=== PATIENT | female | born 1995 | race Caucasian/White ===

== ENCOUNTER 2025-04-29 21:42 | Emergency (ER) | payer OTHER ==
[~2025-04-29] VITALS: Ht 165.1 cm; Wt 95.9 kg
[2025-04-29] MEDS ORDERED: LACTATED RINGER'S 1,000 ML IV ONE (22:00)
[2025-04-29 22:14] LABS: BASOPHILS 0.6 % (0.1-1.2); EOSINOPHILS 3.6 % (0.7-5.8); LYMPHOCYTES 34.5 % (19.3-51.7); MCH 30.1 PG (25.6-32.2); MCHC 32.8 g/dL (32.2-35.5); MCV 91.8 fL (79.4-94.8); MONOCYTES 7.0 % (4.7-12.5); NEUTROPHILS 54.1 % (34.0-71.1); RBC 4.49 M/uL (3.93-5.22)
[2025-04-29 22:39] LABS: ABO A; RH POSITIVE
[2025-04-29 22:41] LABS: ALT (SGPT) 24.0 U/L (14-59); AST (SGOT) 13.0 U/L (15-37); GLOMERULAR FILTRATION RATE,EST 117.0 mL/min (>60); PROTEIN, TOTAL 7.1 g/dL (6.4-8.2); UREA NITROGEN 10.0 mg/dL (7-18)
--- OUTSIDE RECORDS SUMMARY | 2025-04-29 22:47 | XMS ---
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 E.D. VISIT COUNT (12 MO.) 5 Elliot Chung ([place] ) 1 MARIA DOLORES DeseretBabatunde Chung TOTAL 6 NOTE: Visits indicate total known visits. ED/UCC VISIT TRACKING (12 MO.) 04/29/2025 21:43 MARIA DOLORES Leroy TYPE: Emergency COMPLAINT: - VAGINAL BLEEDING 01/28/2025 20:26 Elliot HANCOCK ([place] ) TYPE: Emergency DIAGNOSES: - Unspecified acute appendicitis - Abdominal Pain - Weakness 01/20/2025 19:37 Elliot TOBIN [place] ([facility]) TYPE: Emergency DIAGNOSES: - Bitten by dog, initial encounter - Dog Bite - Dog Bite(s) 01/18/2025 20:45 Elliot TOBIN [place] ([facility]) TYPE: Emergency DIAGNOSES: - Headache, unspecified - Headache - Headache (Adult - New Onset Or New Symptoms) 07/29/2024 04:57 Elliot TOBIN [place] ([facility]) TYPE: Emergency DIAGNOSES: - Other specified respiratory disorders - Other viral agents as the cause of diseases classified elsewhere - Cough - Difficulty Breathing; Flu Like Symptoms - Shortness of Breath 05/03/2024 02:Susanne TOBIN OR ([facility]) TYPE: Emergency DIAGNOSES: - Cellulitis of left lower limb - Other acute postprocedural pain - Fever (9 Weeks To 74 Years) - Post-Op Complaint - Post-op Problem INPATIENT VISIT TRACKING (12 MO.) No inpatient visits to display in this time frame [id number]
[2025-04-29 23:17] VITALS: BP 121/78
== END 2025-04-29 23:17 | disposition home or self-care (01) ==
LOC: ED 21:42
PROVIDERS: Family Medicine
DX: O20.0 Threatened abortion (principal); Z3A.01 Less than 8 weeks gestation of pregnancy; Z88.2 Allergy status to sulfonamides
CPT/HCPCS: 36415; 76801; 76817; 80053; 84702; 85025; 86900; 86901; 99284-25; J7121

== ENCOUNTER 2025-05-04 09:20 | Emergency (ER) | payer OTHER ==
[~2025-05-04] VITALS: Ht 165.1 cm; Wt 96.7 kg
--- OUTSIDE RECORDS SUMMARY | 2025-05-04 09:21 | XMS ---
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 PHONE: [phone] TIMMY BALDWIN Nurse Practitioner: Family Current PHONE: Unknown Luis F has no Care Guidelines for this patient. E.Gilbert VISIT COUNT (12 MO.) 4 Elliot JonesBabatunde ([facility]) 2 MARIA DOLORES Villarreal TOTAL 6 NOTE: Visits indicate total known visits. ED/UCC VISIT TRACKING (12 MO.) 05/04/2025 09:21 MARIA DOLORES [place] TYPE: Emergency COMPLAINT: - ABDOMINAL PAIN 04/29/2025 21:43 MARIA DOLORES [place] TYPE: Emergency COMPLAINT: - VAGINAL BLEEDING 01/28/2025 20:26 Elliot TOBIN OR ([email or web address]) TYPE: Emergency DIAGNOSES: - Unspecified acute appendicitis - Abdominal Pain - Weakness 01/20/2025 19:37 Elliot TOBIN OR ([email or web address]) TYPE: Emergency DIAGNOSES: - Bitten by dog, initial encounter - Dog Bite - Dog Bite(s) 01/18/2025 20:45 Elliot TOBIN OR ([email or web address]) TYPE: Emergency DIAGNOSES: - Headache, unspecified - Headache - Headache (Adult - New Onset Or New Symptoms) 07/29/2024 04:57 Elliot TOBIN OR ([email or web address]) TYPE: Emergency DIAGNOSES: - Other specified respiratory disorders - Other viral agents as the cause of diseases classified elsewhere - Cough - Difficulty Breathing; Flu Like Symptoms - Shortness of Breath INPATIENT VISIT TRACKING (12 MO.) No inpatient visits to display in this time frame [email or web address]
[2025-05-04] MEDS ORDERED: SODIUM CHLORIDE 0.9% 1,000 ML IV ONE (10:15)
[2025-05-04] MEDS ORDERED: KETOROLAC TROMETHAMINE 30 MG/ML VIAL IV ONE (10:15)
[2025-05-04 10:48] LABS: BASOPHILS 0.7 % (0.1-1.2); EOSINOPHILS 5.2 % (0.7-5.8); LYMPHOCYTES 39.0 % (19.3-51.7); MCH 29.8 PG (25.6-32.2); MCHC 32.3 g/dL (32.2-35.5); MCV 92.5 fL (79.4-94.8); MONOCYTES 6.1 % (4.7-12.5); NEUTROPHILS 48.8 % (34.0-71.1); RBC 4.66 M/uL (3.93-5.22)
[2025-05-04 11:09] LABS: ALT (SGPT) 22.0 U/L (14-59); AST (SGOT) 12.0 U/L (15-37); GLOMERULAR FILTRATION RATE,EST 111.0 mL/min (>60); PROTEIN, TOTAL 7.3 g/dL (6.4-8.2); UREA NITROGEN 10.0 mg/dL (7-18)
[2025-05-04 11:42] LABS: BLOOD/HGB, URINE MODERATE (Negative); KETONE, URINE NEGATIVE (Negative); LEUK ESTERASE, URINE NEGATIVE (negative); NITRITE, URINE NEGATIVE (negative)
[2025-05-04 11:59] LABS: BACTERIA, URINE 1+ /hpf (negative); CASTS, URINE NONE SEEN \\lpf; CRYSTALS, URINE NONE SEEN (0-1+); EPITHELIAL CELLS, URINE SQUAMOUS 4+ /lpf (0-1+); REFLEX CULTURE, URINE No (No)
[2025-05-04 13:35] VITALS: BP 108/78
== END 2025-05-04 13:32 | disposition home or self-care (01) ==
LOC: ED 09:20
PROVIDERS: Emergency Medicine
DX: O03.9 Complete or unspecified spontaneous abortion without complication (principal); Z88.2 Allergy status to sulfonamides
CPT/HCPCS: 36415; 76801; 76817; 80053; 81001; 84702; 85025; 96374; 96375; 99284-25; J1885; J2405; J7030

== ENCOUNTER 2025-05-06 14:33 | Emergency (ER) | payer OTHER ==
[~2025-05-06] VITALS: Ht 165.1 cm; Wt 96.7 kg
--- OUTSIDE RECORDS SUMMARY | 2025-05-06 14:40 | XMS ---
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 E.D. VISIT COUNT (12 MO.) 4 Elliot Chung ([facility]) 3 MARIA DOLORES Villarreal TOTAL 7 NOTE: Visits indicate total known visits. ED/UCC VISIT TRACKING (12 MO.) 05/06/2025 14:34 MARIA DOLORES [place] TYPE: Emergency COMPLAINT: - ABDOMINAL PAIN 05/04/2025 09:21 MARIA DOLORES [place] TYPE: Emergency COMPLAINT: - ABDOMINAL PAIN DIAGNOSES: - Allergy status to sulfonamides - Complete or unspecified spontaneous without complication - Lower abdominal pain, unspecified 04/29/2025 21:[address] [facility] [place] TYPE: Emergency COMPLAINT: - VAGINAL BLEEDING DIAGNOSES: - Abnormal uterine and vaginal bleeding, unspecified - Allergy status to sulfonamides - Less than 8 weeks gestation of - Threatened 01/28/2025 20:26 Elliot TOBIN OR ([employer]) TYPE: Emergency DIAGNOSES: - Unspecified acute appendicitis - Abdominal Pain - Weakness 01/20/2025 19:37 Elliot TOBIN OR ([employer]) TYPE: Emergency DIAGNOSES: - Bitten by dog, initial encounter - Dog Bite - Dog Bite(s) 01/18/2025 20:45 Elliot JonesBabatunde MEEK E[place]IOT [place] ([employer]) TYPE: Emergency DIAGNOSES: - Headache, unspecified - Headache - Headache (Adult - New Onset Or New Symptoms) 07/29/2024 04:57 Elliot JonesBabatunde TOBIN OR ([employer]) TYPE: Emergency DIAGNOSES: - Other specified respiratory disorders - Other viral agents as the cause of diseases classified elsewhere - Cough - Difficulty Breathing; Flu Like Symptoms - Shortness of Breath INPATIENT VISIT TRACKING (12 MO.) No inpatient visits to display in this time frame [id number]
[2025-05-06] MEDS ORDERED: MORPHINE SULFATE 4 MG/ML VIAL IV ONE ×2 (16:15→19:15)
[2025-05-06 16:25] LABS: BASOPHILS 0.6 % (0.1-1.2); EOSINOPHILS 3.4 % (0.7-5.8); LYMPHOCYTES 34.9 % (19.3-51.7); MCH 29.9 PG (25.6-32.2); MCHC 32.3 g/dL (32.2-35.5); MCV 92.3 fL (79.4-94.8); MONOCYTES 5.1 % (4.7-12.5); NEUTROPHILS 55.8 % (34.0-71.1); RBC 4.69 M/uL (3.93-5.22)
[2025-05-06 16:46] LABS: ALT (SGPT) 22.0 U/L (14-59); AST (SGOT) 13.0 U/L (15-37); GLOMERULAR FILTRATION RATE,EST 109.0 mL/min (>60); PROTEIN, TOTAL 7.6 g/dL (6.4-8.2); UREA NITROGEN 12.0 mg/dL (7-18)
[2025-05-06 17:03] LABS: BLOOD/HGB, URINE TRACE-L (Negative); KETONE, URINE NEGATIVE (Negative); LEUK ESTERASE, URINE NEGATIVE (negative); NITRITE, URINE NEGATIVE (negative)
[2025-05-06 17:15] LABS: BACTERIA, URINE NONE SEEN /hpf (negative); CASTS, URINE NONE SEEN \\lpf; CRYSTALS, URINE NONE SEEN (0-1+); EPITHELIAL CELLS, URINE SQUAMOUS 1+ /lpf (0-1+); REFLEX CULTURE, URINE No (No)
[2025-05-06] MEDS ORDERED: MORPHINE SULFATE 4 MG/ML VIAL ONE (18:49)
[2025-05-06] MEDS ORDERED: CYTOTEC200 MCG BUCCAL (19:19)
[2025-05-06] MEDS ORDERED: ONDANSETRON 4 MG HOME.PACK SL ONE (19:30)
[2025-05-06] MEDS ORDERED: OXYCODONE/ACETAMINOPHEN 1 TAB HOME.PACK PO ONE (19:30)
[2025-05-06 20:03] VITALS: BP 111/62
== END 2025-05-06 19:53 | disposition home or self-care (01) ==
LOC: ED 14:33
PROVIDERS: Emergency Medicine
DX: O03.4 Incomplete spontaneous abortion without complication (principal); Z88.2 Allergy status to sulfonamides
CPT/HCPCS: 36415; 76830; 76856; 80053; 81001; 83690; 84702; 84703; 85025; 96374; 96375; 96376; 99284-25; A9270; J2270; J2405

== ENCOUNTER 2025-05-08 11:01 | Day surgery (SDC) | payer OTHER ==
[~2025-05-08] VITALS: Ht 165.1 cm; Wt 96.7 kg
[~2025-05-08 11:01] MED LIST: CYTOTEC200 MCG BUCCAL
--- OUTSIDE RECORDS SUMMARY | 2025-05-08 11:07 | XMS ---
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 E.D. VISIT COUNT (12 MO.) 4 MARIA DOLORES Ayoub Elliot Chung ([place] ) TOTAL 8 NOTE: Visits indicate total known visits. ED/UCC VISIT TRACKING (12 MO.) 05/08/2025 11:01 MARIA DOLORES [place] TYPE: Emergency COMPLAINT: - ABDOMINAL PAIN 05/06/2025 14:34 MARIA DOLORES [place] TYPE: Emergency COMPLAINT: - ABDOMINAL PAIN DIAGNOSES: - Allergy status to sulfonamides - Incomplete spontaneous without complication - Lower abdominal pain, unspecified 05/04/2025 09:21 MARIA DOLORES Leroy TYPE: Emergency COMPLAINT: - ABDOMINAL PAIN DIAGNOSES: - Allergy status to sulfonamides - Complete or unspecified spontaneous without complication - Lower abdominal pain, unspecified 04/29/2025 21:43 [facility] TYPE: Emergency COMPLAINT: - VAGINAL BLEEDING DIAGNOSES: - Abnormal uterine and vaginal bleeding, unspecified - Allergy status to sulfonamides - Less than 8 weeks gestation of - Threatened 01/28/2025 20:26 Elliot HANCOCK ([facility]) TYPE: Emergency DIAGNOSES: - Unspecified acute appendicitis - Abdominal Pain - Weakness 01/20/2025 19:37 Elliot JonesBabatunde FANTASMA ZARATE [place] ([employer]) TYPE: Emergency DIAGNOSES: - Bitten by dog, initial encounter - Dog Bite - Dog Bite(s) 01/18/2025 20:45 Elliot JonesBabatunde MEEK ELLI[place] ([employer]) TYPE: Emergency DIAGNOSES: - Headache, unspecified - Headache - Headache (Adult - New Onset Or New Symptoms) 07/29/2024 04:57 Elliot JonesBabatunde FANTASMA GARAYE [place] ([employer]) TYPE: Emergency DIAGNOSES: - Other specified respiratory disorders - Other viral agents as the cause of diseases classified elsewhere - Cough - Difficulty Breathing; Flu Like Symptoms - Shortness of Breath INPATIENT VISIT TRACKING (12 MO.) No inpatient visits to display in this time frame [email or web address]
[2025-05-08] MEDS ORDERED: SUMATRIPTAN SU100 MG PO (11:15)
[2025-05-08] MEDS ORDERED: ESCITALOPRAM OXA5 MG PO (11:16)
[2025-05-08 11:29] LABS: BASOPHILS 0.6 % (0.1-1.2); EOSINOPHILS 3.2 % (0.7-5.8); LYMPHOCYTES 24.6 % (19.3-51.7); MCH 30.2 PG (25.6-32.2); MCHC 32.7 g/dL (32.2-35.5); MCV 92.5 fL (79.4-94.8); MONOCYTES 4.9 % (4.7-12.5); NEUTROPHILS 66.5 % (34.0-71.1); RBC 4.93 M/uL (3.93-5.22)
[2025-05-08 11:57] LABS: ALT (SGPT) 17.0 U/L (14-59); AST (SGOT) 11.0 U/L (15-37); GLOMERULAR FILTRATION RATE,EST 89.0 mL/min (>60); PROTEIN, TOTAL 8.2 g/dL (6.4-8.2); UREA NITROGEN 14.0 mg/dL (7-18)
[2025-05-08 13:03] LABS: BLOOD/HGB, URINE TRACE-L (Negative); KETONE, URINE NEGATIVE (Negative); LEUK ESTERASE, URINE NEGATIVE (negative); NITRITE, URINE NEGATIVE (negative)
[2025-05-08 13:14] LABS: BACTERIA, URINE NONE SEEN /hpf (negative); CASTS, URINE NONE SEEN \\lpf; CRYSTALS, URINE NONE SEEN (0-1+); EPITHELIAL CELLS, URINE SQUAMOUS 1+ /lpf (0-1+); REFLEX CULTURE, URINE No (No)
[2025-05-08] MEDS ORDERED: SODIUM CHLORIDE 0.9% 1,000 ML IV SCH (13:30)
[2025-05-08] MEDS ORDERED: DOXYCYCLINE HYCLATE 100 MG CAP PO ONE (14:15)
[2025-05-08] MEDS ORDERED: KETOROLAC TROMETHAMINE 30 MG/ML VIAL ONE (14:49)
[2025-05-08] MEDS ORDERED: LIDOCAINE HCL 2% 5 ML SDV ONE (14:49)
[2025-05-08] MEDS ORDERED: fentaNYL citrate 100 MCG/2 ML VIAL ONE (14:49)
[2025-05-08] MEDS ORDERED: MIDAZOLAM HCL 2 MG/2 ML VIAL ONE (14:49)
[2025-05-08] MEDS ORDERED: DEXAMETHASONE SOD PHOS 4 MG/ML VIAL ONE (14:49)
[2025-05-08] MEDS ORDERED: ACETAMINOPHEN 1,000 MG/100 ML VIAL ONE (15:09)
[2025-05-08] MEDS ORDERED: MORPHINE SULFATE 10 MG/ML VIAL IV PRN (15:30)
[2025-05-08] MEDS ORDERED: NALOXONE HCL 0.4 MG SYR IV PRN ×2 (15:30→15:45)
[2025-05-08] MEDS ORDERED: FAMOTIDINE 20 MG/ 2 ML VIAL IV PRN (15:30)
[2025-05-08] MEDS ORDERED: SIMETHICONE 80 MG CHEW PO PRN (15:30)
[2025-05-08] MEDS ORDERED: MAGNESIUM HYDROXIDE/AL HYDROX 30 ML CUP PO PRN (15:30)
[2025-05-08] MEDS ORDERED: OXYCODONE/APAP 5/325 TAB PO PRN (15:30)
[2025-05-08] MEDS ORDERED: PROCHLORPERAZINE EDISYLATE 10 MG/2 ML VIAL IV PRN (15:30)
[2025-05-08 15:39] LABS: ABO A; ANTIBODY SCREEN NEGATIVE; RH POSITIVE
[2025-05-08] MEDS ORDERED: MIDAZOLAM HCL 2 MG/2 ML VIAL IV PRN (15:45)
[2025-05-08] MEDS ORDERED: fentaNYL citrate 50 MCG/ML SDV IV PRN (15:45)
[2025-05-08] MEDS ORDERED: IBLOOD GLUCOSE TEST STRIP 1 EA TEST VI PRN (15:45)
[2025-05-08 16:49] VITALS: BP 121/80
--- NOTE | 2025-05-08 16:59 | NUR ---
05/08/25 1659 Candice Hauser 1531- PT PRESENTS TO PACU, SEMI ODELL POSITION, DROWSY BUT REACTIVE TO STIMULUS. LR INFUSING TO LAC IV. BREATHING EVEN AND NON LABORED ON ROOM AIR. ABD SOFT, NON DISTENDED. SMALL AMOUNT OF BLOOD NOTED ON UPPER INNER THIGHS. ALL MONITORS IN PLACE. 1536- PT TEARFUL AND C/O CRAMPING PAIN. DENIES NAUSEA. WILL MEDICATE PER ORDERS. 1542- FENTANYL GIVEN AND HOT PACK PLACED TO ABD. 1550- PT SITTING UP IN BED, TEXTING ON HER PHONE. PT HAS VERY FLAT AFFECT SITTING IN BED. 1600- PT PROVIDED WITH SODA, TOLERATING WELL. PAIN 5/10 AND REMAINS CRAMPING. 1602- PT MEDICATED WITH 2ND DOSE OF FENTANYL. SIGNIFICANT OTHER AT BEDSIDE. 1615- PT REPORTS PAIN HAS IMPROVED AFTER FENTANYL. PT UP TO SIDE OF BED, TOLERATING WELL. SIGNIFICANT OTHER TO HELP PT DRESS. 1630- PT TRANSFERRED TO WHEELCHAIR WITH STEADY GAIT. SALINE LOCK REMOVED, TIP INTACT, DRESSING APPLIED. PT AND SIGNIFICANT OTHER VERBALIZED UNDERSTANDING OF INSTRUCTIONS. TAKEN OUT TO CAR WITH ALL BELONGINGS.
[2025-05-08] MEDS ORDERED: SIMETHICONE 80 MG CHEW PO SCH (17:00)
[2025-05-09] MEDS ORDERED: LACTATED RINGER'S 1,000 ML IV SCH (05:00)
--- NOTE | 2025-05-09 13:22 | OR ---
[facility] [address] [place], [place] [address] Signed DATE OF OPERATION: 05/08/2025 SURGEON: Ca Chaudhari DO PREOPERATIVE DIAGNOSIS: Incomplete miscarriage. POSTOPERATIVE DIAGNOSIS: Incomplete miscarriage. PROCEDURE PERFORMED: Suction dilation and curettage. ANESTHESIA: MAC. ESTIMATED BLOOD LOSS: 5 mL. SPECIMEN: Products of conception. DRAINS: None. COMPLICATIONS: None. FINDINGS: Normal external genitalia with normal clitoris, urethral meatus, bilateral [place]'s and Bartholin's glands. Normal vagina and cervix. The uterus had small amount of retained products of conception. INDICATIONS: Ms. Stringer is a very pleasant 29-year-old G3, P1-0-2-1 with known incomplete miscarriage. She is treated with Cytotec as an outpatient and failed this. She presented to the ED this morning with fainting and not feeling well, in addition to some cramping and bleeding. An ultrasound was performed that demonstrated thickened endometrial cavity concerning for retained products of conception. The patient was consented for suction D and C. Risks, benefits, and alternatives were discussed in Electronically Signed By: CA CHAUDHARI DO (JD) 05/09/25 1322 PATIENT NAME: FELISHA STRINGER OPERATIVE REPORT DATE OF : [birth year] REPORT #: [id number] PHYSICIAN: CA CHAUDHARI DO (JD) PCP: NO PRIMARY CARE PHYSICIAN REPORT IS CONFIDENTIAL AND NOT TO BE RELEASED WITHOUT AUTHORIZATION [facility] [address] [facility] [facility] [address] [place], [place] [address] Signed detail with the patient. The patient understands and wished to proceed with the procedure. DESCRIPTION OF PROCEDURE: The patient was taken to the OR, where time-out was performed to confirm correct patient and correct procedure. MAC anesthesia was adequately established. The patient was prepped and draped in the dorsal lithotomy position with her feet in Yellofin stirrups. ICPs were on and running. The patient received doxycycline 200 mg p.o. 1 hour preoperatively per SCIP protocol. No heparin was indicated. The bladder was drained. A weighted speculum was placed in the vagina. The anterior lip of the cervix was grasped with an Allis clamp. The cervix was gently dilated using Hegar dilators to a #10. A 10 curved curette was selected and gently advanced to the fundus. Circumferential curettage was performed as the curette was slowly withdrawn. Small amount of retained products of conception was noted in the suction tubing. One additional pass was performed that also demonstrated small amount of products of conception. A sharp curette was then selected and the uterine cavity was carefully probed that did not demonstrate any additional retained products of conception. One final pass of the suction curette was performed demonstrating uterus that was involuting and hemostatic. The Allis clamp was removed and the patient was taken to PACU in good and stable condition. Sponge, needle, and instrument counts were correct x2 at the end of the procedure. DO YOLI Rinaldi/ISHAAN /[id number] Copies: ~ Electronically Signed By: CA CHAUDHARI DO (JD) 05/09/25 1322 PATIENT NAME: FELISHA STRINGER OPERATIVE REPORT DATE OF : [birth year] REPORT #: [id number] PHYSICIAN: CA CHAUDHARI DO (JD) PCP: NO PRIMARY CARE PHYSICIAN REPORT IS CONFIDENTIAL AND NOT TO BE RELEASED WITHOUT AUTHORIZATION
== END 2025-05-08 16:30 ==
LOC: ED 11:01 → DS 14:06
PROVIDERS: Emergency Medicine; ATTEND Obstetrics & Gynecology
PROC: 10D17ZZ Extraction of Products of Conception, Retained, Via Natural or Artificial Opening (ICD-10-PCS; principal; 2025-05-08 14:40)
DX: O03.4 Incomplete spontaneous abortion without complication (principal); Z88.2 Allergy status to sulfonamides
CPT/HCPCS: 01965; 36415; 76830; 80053; 81001; 84702; 85025; 86850; 86900; 86901; 96374; 99285-25; J0131; J1100; J1885; J2003; J2250; J2405; J2704; J3010